=== PATIENT | female | born 1980 | race African-American/Black ===

== ENCOUNTER 2024-11-17 20:23 | Inpatient (IN) ==
[2024-11-17 20:50] VITALS: BMI 29.7
[2024-11-17] MEDS ORDERED: NS 1,000 ML IV 1,000 ML ONE (20:56)
[2024-11-17] MEDS: NS 1,000 ML IV 1,000 ML IV ONE (21:02)
[2024-11-17 21:10] LABS: BASOPHILS # (AUTO) 0.1 X10^3/uL (0.0-0.1); BASOPHILS % (AUTO) 1.1 % (0.2-1.0); EOSINOPHILS # (AUTO) 0.2 x10^3/uL (0.0-0.2); EOSINOPHILS % (AUTO) 1.8 % (0.9-2.9); HEMATOCRIT 25.7 % (36.0-47.0); HEMOGLOBIN 8.7 g/dL (12.0-16.0); LYMPHOCYTES # (AUTO) 1.8 X10^3/uL (1.3-2.9); LYMPHOCYTES % (AUTO) 20.8 % (21.0-51.0); MEAN CORPUSCULAR HEMOGLOBIN 26.8 pg (27.0-34.0); MEAN CORPUSCULAR HGB CONC 33.7 g/dL (33.0-35.0); MEAN CORPUSCULAR VOLUME 79.4 fL (80.0-100.0); MEAN PLATELET VOLUME 9.2 fL (7.4-11.0); MONOCYTES # (AUTO) 0.7 x10^3/uL (0.3-0.8); MONOCYTES % (AUTO) 8.3 % (0.0-13.0); PLATELET COUNT 289 X10^3/uL (150.0-450.0); RED BLOOD COUNT 3.24 X10^6/uL (3.5-5.4); RED CELL DISTRIBUTION WIDTH 12.8 % (11.6-16.5); WHITE BLOOD COUNT 8.8 X10^3/uL (3.6-10.0)
[2024-11-17 21:20] LABS: ALBUMIN 2.8 g/dL (3.4-5.0); CALCIUM 8.8 mg/dL (8.5-10.1); COR CA(FOR HYPOALB) 9.8 mg/dL (8.5-10.1); CREATININE 1.73 mg/dL (0.55-1.02); POTASSIUM 3.5 mmol/L (3.5-5.1); TOTAL PROTEIN 7.6 g/dL (6.4-8.2)
[2024-11-17] MEDS ORDERED: VANCOMYCIN HCL ONE (23:00)
[2024-11-17] MEDS ORDERED: NS 250 ML IV 250 ML IV ONE (23:00)
--- NOTE | 2024-11-17 23:02 | DR.EXTPAIN ---
HPI Time seen Time Seen by Provider: 11/17/24 22:52 PCP Primary Care Physician: holly HPI Comment HPI Comment: Patient was seen earlier here in the ER and found to be severely hyperglycemic with a new diabetic ulcer on her left heel. Patient was scheduled to have surgery with Dr. Canada for her gallbladder on Thursday. As Dr. Canada was walking to the emergency room he was able to stop by and see her ulcer and recommended admission with consultation. I was preparing to admit patient to medical service the patient stated she needed to leave AMA to go berry picker her kid. Now patient is returning with intent of admission and her glucose has improved significantly since she had insulin and then left the hospital. Patient did mention that her last A1c before the holidays was over 13. She denies any fever. Otherwise feels at her baseline. Complaint/Symptoms Chief Complaint:: pt states" I was here earlier and they wanted to admit me I had to leave to go take care of family I'm back now to be admitted because of my diabetic ulcer on my lt foot" COVID-19 Coronavirus risk:travel/contact w/high risk person: No Has patient experienced Coronavirus symptoms: No Source History Provided: Patient Mode of arrival Mode of Arrival: Ambulatory Timing Onset of Chief Complaint: 11/17/24 PMH PMH Past Medical History: Yes Past Medical History: Diabetes Past Surgical History: Yes Surgical History: and Hysterectomy Family History History of Family Medical Conditions: Yes Family Medical History: Diabetes Mellitus Social History Does patient currently use any type of tobacco product: No Have you used tobacco products in the last 12 months: No Type of Tobacco Use: None Does any household member use tobacco: No Do you use any recreational Drugs:: No Lives With: Family Lives Where: Home Travel Risk Coronavirus risk:travel/contact w/high risk person: No Has patient experienced Coronavirus symptoms: No Infectious screening In the last 2 months have you had wt loss of >10#?: NO Have you had fever, night sweats or hemotysis?: No Have you traveled outside the country in the last 6 months?: No Isolation: Standard ROS Review of Systems Constitutional: No Symptoms Reported Eyes: No Symptoms Reported ENTM: No Symptoms Reported Respiratoy: No Symptoms Reported Cardiovascular: No Symptoms Reported Gastrointestinal/Abdominal: No Symptoms Reported Genitourinary: No Symptoms Reported Neurological: No Symptoms Reported Musculoskeletal: No Symptoms Reported Integumentary: Other (Left heel diabetic ulcer.) Hematologic/Lymphatic: No Symptoms Reported Endocrine: No Symptoms Reported Psychiatric: No Symptoms Reported All Other Systems: Reviewed and Negative PE Vital Signs Vitals: Vital Signs Temperature 98.7 F Pulse Rate 112 Respiratory Rate 18 Blood Pressure [Left Arm] 134/77 Blood Pressure 173/83 O2 Sat by Pulse Oximetry 100 General Limitations: No Limitations General Appearance: Alert and In No Apparent Distress Head Head Exam: Normal Inspection Eyes Eye exam: Normal Appearance ENT ENT Exam: Normal Exam Neck Neck Exam: Normal Inspection Chest Chest Inspection: Normal Inspection Respiratory Respiratory Exam: Normal Lung Sounds Bilat Cardiovascular Cardiovascular Exam: Regular Rate and Normal Rhythm Abdominal Exam Abdominal Exam: Normal Inspection, Normal Bowel Sounds and Soft Extremities Extremities Exam: Other (Diabetic ulcer on left heel. Bilateral pedal edema.) Back Back Exam: Normal Inspection Neurological Neurological Exam: Alert, Oriented X3 and CN II-XII Intact Psychiatric Psychiatric Exam: Normal Affect and Normal Mood Skin Skin Exam: Warm, Dry, Intact and Normal Color COURSE Treatment Treatment: Patient had left AMA earlier while considering admission due to severe hyperglycemia and diabetic ulcer. Patient is scheduled for surgery on Thursday with Dr. Canada for her gallbladder. Dr. Canada had seen the ulcer while she was here in the ER but she had to leave to get her kid so she left AMA but returned. Patient's glucose improved significantly upon return. Consultation Called: 00:53 Consultation Comments: Discussed case with Dr. Knott and he is agreeable to admission. Discussed case with Dr. Canada, surgery, and he saw the patient earlier today before patient left AMA and then returned. [facility] Labs Reviewed 11/17/24 21:00 11/17/24 21:00 Laboratory: WBC 8.8 X10^3/uL (3.6-10.0) 11/17/24 21:00 RBC 3.24 X10^6/uL (3.5-5.4) L 11/17/24 21:00 Hgb 8.7 g/dL (12.0-16.0) L 11/17/24 21:00 Hct 25.7 % (36.0-47.0) L 11/17/24 21:00 MCV 79.4 fL (80.0-100.0) L 11/17/24 21:00 MCH 26.8 pg (27.0-34.0) L 01/30/25 21:00 MCHC 33.7 g/dL (33.0-35.0) 11/17/24 21:00 RDW 12.8 % (11.6-16.5) 11/17/24 21:00 Plt Count 289 X10^3/uL (150.0-450.0) 11/17/24 21:00 MPV 9.2 fL (7.4-11.0) 11/17/24 21:00 Neut % (Auto) 68.0 % (42.0-75.0) 11/17/24 21:00 Lymph % (Auto) 20.8 % (21.0-51.0) L 11/17/24 21:00 [place] % (Auto) 8.3 % (0.0-13.0) 11/17/24 21:00 Eos % (Auto) 1.8 % (0.9-2.9) 11/17/24 21:00 Baso % (Auto) 1.1 % (0.2-1.0) H 11/17/24 21:00 Neut # (Auto) 6.0 x10^3/uL (2.2-4.8) H 11/17/24 21:00 Lymph # (Auto) 1.8 X10^3/uL (1.3-2.9) 11/17/24 21:00 [place] # (Auto) 0.7 x10^3/uL (0.3-0.8) 11/17/24 21:00 Eos # (Auto) 0.2 x10^3/uL (0.0-0.2) 11/17/24 21:00 Baso # (Auto) 0.1 X10^3/uL (0.0-0.1) 11/17/24 21:00 Absolute Nucleated RBC 0.0 /100WBC 11/17/24 21:00 Sodium 130 mmol/L (136-145) L 11/17/24 21:00 Corrected Sodium 136 mmol/L (136-145) 11/17/24 21:00 Potassium 3.5 mmol/L (3.5-5.1) 11/17/24 21:00 Chloride 94 mmol/L (98-107) L 11/17/24 21:00 Carbon Dioxide 27.0 mmol/L (21-32) 11/17/24 21:00 BUN 18 mg/dL (7-18) 11/17/24 21:00 Creatinine 1.73 mg/dL (0.55-1.02) H 11/17/24 21:00 Est GFR (MDRD) Af Amer 41 (>60) L 11/17/24 21:00 Est GFR (MDRD) Non-Af 34 (>60) L 11/17/24 21:00 Glucose 367 mg/dL (65-99) H 11/17/24 21:00 Calcium 8.8 mg/dL (8.5-10.1) 11/17/24 21:00 Corrected Calcium 9.8 mg/dL (8.5-10.1) 11/17/24 21:00 Total Bilirubin 0.20 mg/dL (0.2-1.0) 11/17/24 21:00 AST 14 Units/L (15-37) L 11/17/24 21:00 ALT 22 Units/L (12-78) 11/17/24 21:00 Alkaline Phosphatase 159 Units/L (46-116) H 11/17/24 21:00 Total Protein 7.6 g/dL (6.4-8.2) 11/17/24 21:00 Albumin 2.8 g/dL (3.4-5.0) L 11/17/24 21:00 Globulin 4.8 g/dL (2.5-4.5) H 11/17/24 21:00 Albumin/Globulin Ratio 0.6 Ratio (1.1-2.1) L 11/17/24 21:00 Opioid Opioid Risk Tool Age (Cornel box if 16-45): No History of Preadolescent Sexual Abuse: No Total: 0 Total Score Risk Category: Low Risk Copyright: Waqar MARTINEZ predicting aberrant behaviors Discharge Plan Diagnosis Discharge Problem: 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, Diabetic ulcer of left heel, Hyperglycemia, Diabetes mellitus, insulin dependent (IDDM), uncontrolled Discharge Plan Patient Disposition: ADMITTED INPATIENT Condition: Stable Prescriptions: No Action lisinopril 10 mg tablet 10 mg PO DAILY glyburide 5 mg tablet 5 mg PO amitriptyline 50 mg tablet 50 mg PO gabapentin 600 mg tablet PO 3XD famotidine 40 mg tablet 40 mg PO BID atorvastatin 10 mg tablet 20 mg PO DAILY Humulin N NPH Insulin KwikPen 100 unit/mL (3 mL) insulin pen 5 unit SUBCUT TID Health Concerns: Post Hospitalization: new medications and changes needed to prevent readmission or further decline. Pt educated and given instructions on all concerns. Plan of Treatment: Continue with present treatment and follow up plan. Pt is to keep follow up appointment as instructed and take medications as ordered. Orders to Discharge Patient Discharge Orders: Transfer (Routine); Ordered 11/18/24 Ordered By: Ben Walters Follow ups/Referrals Follow ups/Referrals: GENO MUJICA [Primary Care Provider] - 3 days Instructions Stand Alone Forms: Find Help Web Site, Post Hospital Follow Up Care
[2024-11-17] MEDS: VANCOMYCIN IV *PREMIX 1 G/200 ML BAG 1 G/200 ML PIGGYBACK IV ONE (23:04)
[2024-11-17] MEDS: VANCOMYCIN HCL 1 G in NS 250 ML IV 250 ML IV ONE (23:04)
[2024-11-18] MEDS ORDERED: CONSULT PHARMACY - POTASSIUM & MAGNESIUM XX SCH ×2 (01:40→07:00)
[2024-11-18] MEDS ORDERED: NS 1,000 ML IV 1,000 ML IV SCH (01:40)
[2024-11-18] MEDS ORDERED: PHARMACY CONSULT - VANCOMYCIN XX SCH (01:40)
[2024-11-18] MEDS ORDERED: NORCO 5/325 MG TAB ONE (02:50)
[2024-11-18 06:15] LABS: BASOPHILS % (AUTO) 0.3 % (0.2-1.0); EOSINOPHILS # (AUTO) 0.2 x10^3/uL (0.0-0.2); EOSINOPHILS % (AUTO) 2.2 % (0.9-2.9); HEMOGLOBIN 7.4 g/dL (12.0-16.0); LYMPHOCYTES # (AUTO) 2.1 X10^3/uL (1.3-2.9); LYMPHOCYTES % (AUTO) 27.1 % (21.0-51.0); MEAN CORPUSCULAR HEMOGLOBIN 26.8 pg (27.0-34.0); MEAN CORPUSCULAR HGB CONC 33.7 g/dL (33.0-35.0); MEAN CORPUSCULAR VOLUME 79.3 fL (80.0-100.0); MEAN PLATELET VOLUME 9.4 fL (7.4-11.0); MONOCYTES # (AUTO) 0.7 x10^3/uL (0.3-0.8); MONOCYTES % (AUTO) 8.7 % (0.0-13.0); NEUTROPHILS # (AUTO) 4.7 x10^3/uL (2.2-4.8); NEUTROPHILS % (AUTO) 61.7 % (42.0-75.0); PLATELET COUNT 248 X10^3/uL (150.0-450.0); RED BLOOD COUNT 2.77 X10^6/uL (3.5-5.4); RED CELL DISTRIBUTION WIDTH 12.6 % (11.6-16.5); WHITE BLOOD COUNT 7.6 X10^3/uL (3.6-10.0)
[2024-11-18 06:27] LABS: ALANINE AMINOTRANSFERASE 17 Units/L (12-78); ALBUMIN 2.2 g/dL (3.4-5.0); ALKALINE PHOSPHATASE 136 Units/L (46-116); ASPARTATE AMINO TRANSFERASE 15 Units/L (15-37); BLOOD UREA NITROGEN 13 mg/dL (7-18); CALCIUM 8.2 mg/dL (8.5-10.1); CARBON DIOXIDE 24.6 mmol/L (21-32); CHLORIDE 99 mmol/L (98-107); COR CA(FOR HYPOALB) 9.6 mg/dL (8.5-10.1); COR NA(FOR HYPERGLY) 135 mmol/L (136-145); CREATININE 1.09 mg/dL (0.55-1.02); GLUCOSE 244 mg/dL (65-99); MAGNESIUM 1.6 mg/dL (2.0-2.9); POTASSIUM 3.8 mmol/L (3.5-5.1); SODIUM 132 mmol/L (136-145); TOTAL PROTEIN 6.4 g/dL (6.4-8.2); eGFR NON BLACK RACES 58 (>60)
[2024-11-18] MEDS: NovoLIN R (or HumuLIN R) SUBCUT PRN (06:29)
[2024-11-18 07:07] LABS: HEMOGLOBIN A1C > 14.0 %
[2024-11-18] MEDS: K-DUR TAB 20 MEQ PO SCH (08:12)
[2024-11-18] MEDS: VANCOMYCIN HCL 1 G in D5W 250 ML IV 250 ML IV SCH (08:13)
[2024-11-18] MEDS: NS 1,000 ML IV 1,000 ML with MAGNESIUM SULFATE 50% INJ VIAL 1 G IV SCH (08:13)
[2024-11-18] MEDS ORDERED: MAG-OX TAB PO SCH (09:00)
[2024-11-18] MEDS: NEURONTIN TAB 600 MG PO SCH (10:46)
[2024-11-18] MEDS: ZESTRIL TAB 10 MG PO SCH (10:46)
[2024-11-18] MEDS: ZOFRAN INJ 4 MG VIAL IVP PRN (11:48)
[2024-11-18] MEDS ORDERED: VANCOMYCIN HCL 1 G in D5W 250 ML IV 250 ML IV SCH (13:00)
[2024-11-18] MEDS: NORCO 5/325 MG TAB PO PRN (20:30)
[2024-11-18 22:20] LABS: CREATININE 1.43 mg/dL (0.55-1.02)
[2024-11-18 22:22] LABS: VANCOMYCIN,TROUGH 26.2 ug/mL (15-20)
[2024-11-18] MEDS: SNACK - Diabetic Appropriate PO SCH (22:32)
[2024-11-18] MEDS: PHARMACY COMMENT IV ONE (22:43)
[2024-11-19 07:12] LABS: BASOPHILS % (AUTO) 0.4 % (0.2-1.0); EOSINOPHILS # (AUTO) 0.2 x10^3/uL (0.0-0.2); EOSINOPHILS % (AUTO) 2.7 % (0.9-2.9); HEMATOCRIT 24.3 % (36.0-47.0); HEMOGLOBIN 8.1 g/dL (12.0-16.0); LYMPHOCYTES # (AUTO) 1.9 X10^3/uL (1.3-2.9); LYMPHOCYTES % (AUTO) 28.4 % (21.0-51.0); MEAN CORPUSCULAR HEMOGLOBIN 26.4 pg (27.0-34.0); MEAN CORPUSCULAR HGB CONC 33.4 g/dL (33.0-35.0); MEAN CORPUSCULAR VOLUME 79.1 fL (80.0-100.0); MEAN PLATELET VOLUME 9.7 fL (7.4-11.0); MONOCYTES # (AUTO) 0.4 x10^3/uL (0.3-0.8); MONOCYTES % (AUTO) 6.6 % (0.0-13.0); NEUTROPHILS # (AUTO) 4.2 x10^3/uL (2.2-4.8); NEUTROPHILS % (AUTO) 61.9 % (42.0-75.0); PLATELET COUNT 226 X10^3/uL (150.0-450.0); RED BLOOD COUNT 3.07 X10^6/uL (3.5-5.4); RED CELL DISTRIBUTION WIDTH 13.2 % (11.6-16.5); WHITE BLOOD COUNT 6.7 X10^3/uL (3.6-10.0)
[2024-11-19 07:30] LABS: ALANINE AMINOTRANSFERASE 21 Units/L (12-78); ALBUMIN 2.5 g/dL (3.4-5.0); ALKALINE PHOSPHATASE 153 Units/L (46-116); ASPARTATE AMINO TRANSFERASE 24 Units/L (15-37); BLOOD UREA NITROGEN 15 mg/dL (7-18); CALCIUM 9.1 mg/dL (8.5-10.1); CARBON DIOXIDE 25.3 mmol/L (21-32); CHLORIDE 104 mmol/L (98-107); COR CA(FOR HYPOALB) 10.3 mg/dL (8.5-10.1); CREATININE 1.73 mg/dL (0.55-1.02); GLUCOSE 92 mg/dL (65-99); MAGNESIUM 2.2 mg/dL (2.0-2.9); POTASSIUM 4.4 mmol/L (3.5-5.1); SODIUM 137 mmol/L (136-145); eGFR NON BLACK RACES 34 (>60)
[2024-11-19] MEDS ORDERED: VANCOMYCIN HCL 1 G in D5W 250 ML IV 250 ML IV SCH (09:00)
[2024-11-19 09:08] LABS: CREATININE 1.84 mg/dL (0.55-1.02)
[2024-11-19 09:10] LABS: VANCOMYCIN,TROUGH 24.2 ug/mL (15-20)
[2024-11-19] MEDS: NS 1,000 ML IV 1,000 ML IV SCH (09:22)
[2024-11-19] MEDS: VISTARIL PO PRN (21:14)
[2024-11-20 07:00] LABS: BASOPHILS # (AUTO) 0.1 X10^3/uL (0.0-0.1); BASOPHILS % (AUTO) 1.2 % (0.2-1.0); EOSINOPHILS # (AUTO) 0.1 x10^3/uL (0.0-0.2); HEMATOCRIT 25.4 % (36.0-47.0); HEMOGLOBIN 8.6 g/dL (12.0-16.0); LYMPHOCYTES # (AUTO) 1.9 X10^3/uL (1.3-2.9); LYMPHOCYTES % (AUTO) 26.8 % (21.0-51.0); MEAN CORPUSCULAR HEMOGLOBIN 26.9 pg (27.0-34.0); MEAN CORPUSCULAR HGB CONC 33.9 g/dL (33.0-35.0); MEAN CORPUSCULAR VOLUME 79.5 fL (80.0-100.0); MEAN PLATELET VOLUME 9.6 fL (7.4-11.0); MONOCYTES # (AUTO) 0.3 x10^3/uL (0.3-0.8); MONOCYTES % (AUTO) 4.3 % (0.0-13.0); NEUTROPHILS # (AUTO) 4.7 x10^3/uL (2.2-4.8); NEUTROPHILS % (AUTO) 65.7 % (42.0-75.0); PLATELET COUNT 326 X10^3/uL (150.0-450.0); RED BLOOD COUNT 3.19 X10^6/uL (3.5-5.4); WHITE BLOOD COUNT 7.2 X10^3/uL (3.6-10.0)
[2024-11-20 07:25] LABS: ALBUMIN 2.7 g/dL (3.4-5.0); CALCIUM 8.9 mg/dL (8.5-10.1); CARBON DIOXIDE 25.2 mmol/L (21-32); COR CA(FOR HYPOALB) 9.9 mg/dL (8.5-10.1); CREATININE 1.74 mg/dL (0.55-1.02); POTASSIUM 4.4 mmol/L (3.5-5.1); TOTAL PROTEIN 7.8 g/dL (6.4-8.2)
[2024-11-20 08:48] LABS: CREATININE 1.69 mg/dL (0.55-1.02); VANCOMYCIN,TROUGH 11.5 ug/mL (15-20)
[2024-11-20] MEDS: PHARMACY COMMENT IV ONE ×2 (09:00→10:10)
[2024-11-20] MEDS: VANCOMYCIN HCL 1 G in D5W 250 ML IV 250 ML IV SCH (09:55)
[2024-11-20] MEDS: NS 100 ML IV 100 ML with VENOFER 400 MG IV ONE (12:10)
[2024-11-21] MEDS: HIBICLENS WASH EXT ONE (04:31)
[2024-11-21 06:47] LABS: BASOPHILS % (AUTO) 0.5 % (0.2-1.0); EOSINOPHILS # (AUTO) 0.2 x10^3/uL (0.0-0.2); EOSINOPHILS % (AUTO) 2.2 % (0.9-2.9); HEMATOCRIT 21.5 % (36.0-47.0); HEMOGLOBIN 7.2 g/dL (12.0-16.0); LYMPHOCYTES # (AUTO) 1.5 X10^3/uL (1.3-2.9); LYMPHOCYTES % (AUTO) 17.9 % (21.0-51.0); MEAN CORPUSCULAR HGB CONC 33.6 g/dL (33.0-35.0); MEAN CORPUSCULAR VOLUME 80.2 fL (80.0-100.0); MEAN PLATELET VOLUME 9.2 fL (7.4-11.0); MONOCYTES # (AUTO) 0.5 x10^3/uL (0.3-0.8); MONOCYTES % (AUTO) 6.6 % (0.0-13.0); NEUTROPHILS % (AUTO) 72.8 % (42.0-75.0); PLATELET COUNT 286 X10^3/uL (150.0-450.0); RED BLOOD COUNT 2.68 X10^6/uL (3.5-5.4); WHITE BLOOD COUNT 8.2 X10^3/uL (3.6-10.0)
[2024-11-21 07:09] LABS: ALBUMIN 2.2 g/dL (3.4-5.0); CALCIUM 8.2 mg/dL (8.5-10.1); CARBON DIOXIDE 26.7 mmol/L (21-32); COR CA(FOR HYPOALB) 9.6 mg/dL (8.5-10.1); CREATININE 1.57 mg/dL (0.55-1.02); POTASSIUM 4.4 mmol/L (3.5-5.1); TOTAL PROTEIN 6.7 g/dL (6.4-8.2)
[2024-11-21] MEDS: NS 1,000 ML IV 1,000 ML ONE (07:31)
[2024-11-21] MEDS: ANCEF VIAL 1 GRAM ONE (07:59)
[2024-11-21] MEDS: NS 100 ML IV 100 ML ONE (07:59)
[2024-11-21] MEDS: ZEMURON 100 MG VIAL ONE (08:05)
[2024-11-21] MEDS: ZOFRAN INJ 4 MG VIAL ONE ×2 (08:05→09:27)
[2024-11-21] MEDS: PEPCID 20 MG VIAL ONE (08:05)
[2024-11-21] MEDS: VERSED ONE (08:05)
[2024-11-21] MEDS: REGLAN INJ 10 MG VIAL ONE (08:05)
[2024-11-21] MEDS: OFIRMEV IV 1000 MG VIAL 1,000 MG/100 ML VIAL IV ONE (08:05)
[2024-11-21] MEDS: DIPRIVAN VIAL 20 ML ONE (08:05)
[2024-11-21] MEDS: FENTANYL VIAL INJ 100 mcg ONE (08:05)
[2024-11-21] MEDS ORDERED: ULTANE GAS IN ONE (08:05)
[2024-11-21] MEDS: BRIDION ONE (08:05)
[2024-11-21] MEDS: TORADOL 30 MG VIAL ONE (08:05)
[2024-11-21] MEDS: BACTROBAN TOPICAL OINT ONE (08:29)
[2024-11-21] MEDS ORDERED: ZOFRAN INJ 4 MG VIAL IVP PRN (08:41)
[2024-11-21] MEDS ORDERED: REGLAN INJ 10 MG VIAL IVP PRN (08:41)
[2024-11-21] MEDS ORDERED: BENADRYL INJ 50 MG VIAL IVP PRN (08:41)
[2024-11-21] MEDS ORDERED: BARHEMSYS INJ IVP PRN (08:41)
[2024-11-21] MEDS: DILAUDID INJ ONE ×2 (09:27→09:32)
[2024-11-21] MEDS: DILAUDID INJ IVP PRN (09:30)
[2024-11-21 10:34] LABS: CREATININE 1.7 mg/dL (0.55-1.02); VANCOMYCIN,TROUGH 12.4 ug/mL (15-20)
--- NOTE | 2024-11-21 11:13 | EKG ---
Test Reason : pre op Blood Pressure : */* mmHG Vent. Rate : 103 BPM Atrial Rate : 103 BPM P-R Int : 168 ms QRS Dur : 68 ms QT Int : 346 ms P-R-T Axes : 60 69 49 degrees QTc Int : 453 ms Sinus tachycardia Nonspecific T wave abnormality Abnormal ECG Confirmed by Gaston Boyd MD ([id number]) on 11/22/2024 7:49:03 AM Referred By: Confirmed By: Gaston Boyd MD
[2024-11-21 16:22] LABS: HEMOGLOBIN 6.3 g/dL (12.0-16.0)
[2024-11-21] MEDS ORDERED: NS 250 ML IV 250 ML IV ONE (22:07)
--- NOTE | 2024-11-21 23:19 | CT ---
EXAMINATION:LOWER EXT WITH CONHISTORY:diabetic left foot infection ;COMPARISON:None.TECHNIQUE:Contiguous axial CT images of the left foot following intravenous contrast. Images are reviewed in the axial imaging plane with reformatted sagittal and coronal images.The above CT scan was done with automated exposure control and the mA and kV was adjusted to obtain quality images according to patient size.FINDINGS:The osseous structures appear intact. No focal osteolytic or osteoblastic lesions to indicate active osteomyelitis. No evidence of acute traumatic displaced fracture.Generalized extensive soft tissue swelling/edema about the foot and ankle. No definitive focal abscess collection identified.IMPRESSION:Extensive diffuse cellulitis about the foot and ankle. Recommend further evaluation with an MRI of the foot and ankle without and with IV contrast.THIS IS AN ELECTRONICALLY VERIFIED FINAL REPORT11/21/2024 11:15 PM - Electronically signed by Jesika Jo MD
[2024-11-22] MEDS: NS 250 ML IV 25 ML IV PRN (01:34)
[2024-11-22 06:16] LABS: BASOPHILS % (AUTO) 0.5 % (0.2-1.0); EOSINOPHILS # (AUTO) 0.2 x10^3/uL (0.0-0.2); EOSINOPHILS % (AUTO) 2.7 % (0.9-2.9); HEMATOCRIT 26.6 % (36.0-47.0); LYMPHOCYTES # (AUTO) 1.6 X10^3/uL (1.3-2.9); LYMPHOCYTES % (AUTO) 22.6 % (21.0-51.0); MEAN CORPUSCULAR HEMOGLOBIN 28.2 pg (27.0-34.0); MEAN CORPUSCULAR HGB CONC 34.2 g/dL (33.0-35.0); MEAN CORPUSCULAR VOLUME 82.5 fL (80.0-100.0); MONOCYTES # (AUTO) 0.6 x10^3/uL (0.3-0.8); MONOCYTES % (AUTO) 8.5 % (0.0-13.0); NEUTROPHILS # (AUTO) 4.7 x10^3/uL (2.2-4.8); NEUTROPHILS % (AUTO) 65.7 % (42.0-75.0); PLATELET COUNT 262 X10^3/uL (150.0-450.0); RED BLOOD COUNT 3.23 X10^6/uL (3.5-5.4); RED CELL DISTRIBUTION WIDTH 14.1 % (11.6-16.5); WHITE BLOOD COUNT 7.1 X10^3/uL (3.6-10.0)
[2024-11-22 06:25] LABS: HEMOGLOBIN 9.1 g/dL (12.0-16.0)
[2024-11-22 06:32] LABS: ALANINE AMINOTRANSFERASE 34 Units/L (12-78); ALBUMIN 2.2 g/dL (3.4-5.0); ALKALINE PHOSPHATASE 191 Units/L (46-116); ASPARTATE AMINO TRANSFERASE 63 Units/L (15-37); BLOOD UREA NITROGEN 20 mg/dL (7-18); CALCIUM 8.8 mg/dL (8.5-10.1); CARBON DIOXIDE 23.9 mmol/L (21-32); CHLORIDE 107 mmol/L (98-107); COR CA(FOR HYPOALB) 10.2 mg/dL (8.5-10.1); CREATININE 1.87 mg/dL (0.55-1.02); GLUCOSE 74 mg/dL (65-99); POTASSIUM 4.3 mmol/L (3.5-5.1); SODIUM 139 mmol/L (136-145); TOTAL PROTEIN 6.4 g/dL (6.4-8.2); eGFR NON BLACK RACES 31 (>60)
[2024-11-22] MEDS: NS 100 ML IV 100 ML with VENOFER 400 MG IV ONE (10:09)
--- NOTE | 2024-11-22 10:13 | DR.PROGNOT ---
HOSPITAL PROGRESS NOTE Progress Note for Day of: Progress Note Date: 11/22/24 Chief Complaint Chief Complaint: Patient is status post laparoscopic cholecystectomy, complaining of moderate abdominal pain. No nausea or vomiting, tolerating diet well WBC is normal, hemoglobin 9.1, BUN 20 creatinine 1.8, alkaline phosphatase 191 with normal bilirubin. Vancomycin level is 12. Abdomen is soft with good bowel sounds. Patient is scheduled to have MRI of the left heel then patient could be discharged and will follow in 10 days. Past Medical Family Social History Allergies: Allergies No Known Drug Allergies Allergy (Unknown, Verified 11/17/24 14:52) Onset Date: 04/03/2022 Vital Signs Vital Signs: Vital Signs Temperature 98.3 F Pulse Rate [Left] 78 Respiratory Rate 18 Blood Pressure [Left Arm] 120/73 O2 Sat by Pulse Oximetry 100 Physical Exam Oriented: Normal Eyes: Normal Ear: Normal Nose: Normal Throat: Normal Respiratory: Normal Cardiovascular: Normal : Normal GI:Auscultation: Normal GI:Palpation: Normal Mood Description: Calm Speech Pattern: Clear and Appropriate Laboratory and Diagnostics 11/22/24 05:28 11/22/24 05:28 Labs: 11/21/24 09:21 Foot - Left Wound Culture - Preliminary 11/17/24 00:00 Blood Blood Culture - Preliminary 11/17/24 23:40 Blood Blood Culture - Preliminary Laboratory WBC 7.1 X10^3/uL (3.6-10.0) 11/22/24 05:28 RBC 3.23 X10^6/uL (3.5-5.4) L 11/22/24 05:28 Hgb 9.1 g/dL (12.0-16.0) L D 11/22/24 05:28 Hct 26.6 % (36.0-47.0) L 11/22/24 05:28 MCV 82.5 fL (80.0-100.0) 11/22/24 05:28 MCH 28.2 pg (27.0-34.0) 11/22/24 05:28 MCHC 34.2 g/dL (33.0-35.0) 11/22/24 05:28 RDW 14.1 % (11.6-16.5) 11/22/24 05:28 Plt Count 262 X10^3/uL (150.0-450.0) 11/22/24 05:28 MPV 9.0 fL (7.4-11.0) 11/22/24 05:28 Neut % (Auto) 65.7 % (42.0-75.0) 11/22/24 05:28 Lymph % (Auto) 22.6 % (21.0-51.0) 11/22/24 05:28 [place] % (Auto) 8.5 % (0.0-13.0) 11/22/24 05:28 Eos % (Auto) 2.7 % (0.9-2.9) 11/22/24 05:28 Baso % (Auto) 0.5 % (0.2-1.0) 11/22/24 05:28 Neut # (Auto) 4.7 x10^3/uL (2.2-4.8) 11/22/24 05:28 Lymph # (Auto) 1.6 X10^3/uL (1.3-2.9) 11/22/24 05:28 [place] # (Auto) 0.6 x10^3/uL (0.3-0.8) 11/22/24 05:28 Eos # (Auto) 0.2 x10^3/uL (0.0-0.2) 11/22/24 05:28 Baso # (Auto) 0.0 X10^3/uL (0.0-0.1) 11/22/24 05:28 Absolute Nucleated RBC 0.1 /100WBC 11/22/24 05:28 Sodium 139 mmol/L (136-145) 11/22/24 05:28 Corrected Sodium TNP 11/22/24 05: Potassium 4.3 mmol/L (3.5-5.1) 11/22/24 05:28 Chloride 107 mmol/L (98-107) 11/22/24 05:28 Carbon Dioxide 23.9 mmol/L (21-32) 11/22/24 05:28 BUN 20 mg/dL (7-18) H 11/22/24 05:28 Creatinine 1.87 mg/dL (0.55-1.02) H 11/22/24 05:28 Est GFR (MDRD) Af Amer 38 (>60) L 11/22/24 05:28 Est GFR (MDRD) Non-Af 31 (>60) L 11/22/24 05:28 Glucose 74 mg/dL (65-99) 11/22/24 05:28 POC Glucose (mg/dL) 71 mg/dL (65-99) 11/22/24 05:22 Hemoglobin A1c > 14.0 % 11/18/24 05:18 Lactic Acid 1.2 mmol/L (0.4-2.0) 11/17/24 23:59 Calcium 8.8 mg/dL (8.5-10.1) 11/22/24 05:28 Corrected Calcium 10.2 mg/dL (8.5-10.1) H 11/22/24 05:28 Magnesium 2.2 mg/dL (2.0-2.9) 11/19/24 05:22 Total Bilirubin 0.30 mg/dL (0.2-1.0) 11/22/24 05:28 AST 63 Units/L (15-37) H 11/22/24 05:28 ALT 34 Units/L (12-78) 11/22/24 05:28 Alkaline Phosphatase 191 Units/L (46-116) H 11/22/24 05:28 Total Protein 6.4 g/dL (6.4-8.2) 11/22/24 05:28 Albumin 2.2 g/dL (3.4-5.0) L 11/22/24 05:28 Globulin 4.2 g/dL (2.5-4.5) 11/22/24 05:28 Albumin/Globulin Ratio 0.5 Ratio (1.1-2.1) L 11/22/24 05:28 Vancomycin Trough 12.4 ug/mL (15-20) L 11/21/24 09:53 Blood Type O POSITIVE 11/21/24 17:03 Antibody Screen Negative 11/21/24 17:03 Crossmatch See Detail 11/21/24 17:03 Assessment and Plan 1: Status post laparoscopic cholecystectomy, will advance diet 2: Infected left heel ulcer, to have MRI of the foot, same vancomycin awaiting final culture report. 3: Diabetes mellitus with complications. 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
[2024-11-22] MEDS ORDERED: TOPROL XL PO ONE (12:24)
[2024-11-22] MEDS: FARXIGA PO SCH (12:28)
[2024-11-22] MEDS: ACTOS PO SCH (12:29)
[2024-11-22] MEDS: TOPROL XL PO SCH (12:29)
[2024-11-22] MEDS: ZESTRIL TAB 10 MG PO ONE (12:29)
[2024-11-23 00:12] VITALS: RESP 18
[2024-11-23] MEDS: CATAPRES TAB 0.1 MG PO ONE (00:23)
[2024-11-23 06:16] LABS: BASOPHILS % (AUTO) 0.5 % (0.2-1.0); EOSINOPHILS # (AUTO) 0.2 x10^3/uL (0.0-0.2); HEMOGLOBIN 8.6 g/dL (12.0-16.0); LYMPHOCYTES # (AUTO) 1.4 X10^3/uL (1.3-2.9); LYMPHOCYTES % (AUTO) 23.2 % (21.0-51.0); MEAN CORPUSCULAR HEMOGLOBIN 28.1 pg (27.0-34.0); MEAN CORPUSCULAR HGB CONC 34.4 g/dL (33.0-35.0); MEAN CORPUSCULAR VOLUME 81.8 fL (80.0-100.0); MONOCYTES # (AUTO) 0.5 x10^3/uL (0.3-0.8); MONOCYTES % (AUTO) 8.2 % (0.0-13.0); NEUTROPHILS # (AUTO) 3.8 x10^3/uL (2.2-4.8); NEUTROPHILS % (AUTO) 64.1 % (42.0-75.0); PLATELET COUNT 251 X10^3/uL (150.0-450.0); RED BLOOD COUNT 3.05 X10^6/uL (3.5-5.4); RED CELL DISTRIBUTION WIDTH 14.3 % (11.6-16.5)
[2024-11-23 06:26] LABS: ALBUMIN 1.9 g/dL (3.4-5.0); CALCIUM 8.3 mg/dL (8.5-10.1); CARBON DIOXIDE 23.3 mmol/L (21-32); CREATININE 1.72 mg/dL (0.55-1.02); POTASSIUM 4.4 mmol/L (3.5-5.1); TOTAL PROTEIN 5.9 g/dL (6.4-8.2)
[2024-11-23] MEDS ORDERED: TOPROL XL PO ONE (08:14)
[2024-11-23 08:44] VITALS: BP 130/63; PULSE 81; TEMP 98.7; O2SAT 97
== END 2024-11-23 16:10 | disposition home or self-care (01) | DRG 418 ==
LOC: ER 20:23 → MED/SURG 20:23 → ER 11-18 01:29
PROVIDERS: ADMIT Obstetrics & Gynecology Obstetrics; ATTEND Obstetrics & Gynecology Obstetrics
DX: K81.1 Chronic cholecystitis; N18.9 Chronic kidney disease, unspecified; B95.7 Other staphylococcus as the cause of diseases classified elsewhere; R79.89 Other specified abnormal findings of blood chemistry; E11.65 Type 2 diabetes mellitus with hyperglycemia; R00.0 Tachycardia, unspecified; Z79.4 Long term (current) use of insulin; Z53.29 Procedure and treatment not carried out because of patient's decision for other reasons; E87.1 Hypo-osmolality and hyponatremia; Z01.810 Encounter for preprocedural cardiovascular examination; E11.42 Type 2 diabetes mellitus with diabetic polyneuropathy; D64.89 Other specified anemias; M79.672 Pain in left foot; Z16.29 Resistance to other single specified antibiotic; L97.428 Non-pressure chronic ulcer of left heel and midfoot with other specified severity; R94.31 Abnormal electrocardiogram [ECG] [EKG]; K66.0 Peritoneal adhesions (postprocedural) (postinfection); B95.61 Methicillin susceptible Staphylococcus aureus infection as the cause of diseases classified elsewhere; R74.8 Abnormal levels of other serum enzymes; E11.621 Type 2 diabetes mellitus with foot ulcer; E83.42 Hypomagnesemia

== ENCOUNTER 2024-12-02 13:10 | Observation (INO) ==
[2024-12-02] MEDS: NS 1,000 ML IV 1,000 ML IV ONE ×2 (14:12→18:27)
[2024-12-02] MEDS: MORPHINE SULFATE INJ 4 MG IVP ONE ×2 (14:13→16:33)
[2024-12-02] MEDS: ZOFRAN INJ 4 MG VIAL IVP ONE ×2 (14:13→18:27)
[2024-12-02 15:09] LABS: BASOPHILS # (AUTO) 0.1 X10^3/uL (0.0-0.1); BASOPHILS % (AUTO) 0.8 % (0.2-1.0); HEMATOCRIT 35.8 % (36.0-47.0); HEMOGLOBIN 11.9 g/dL (12.0-16.0); LYMPHOCYTES # (AUTO) 1.3 X10^3/uL (1.3-2.9); LYMPHOCYTES % (AUTO) 11.1 % (21.0-51.0); MEAN CORPUSCULAR HEMOGLOBIN 27.3 pg (27.0-34.0); MEAN CORPUSCULAR HGB CONC 33.2 g/dL (33.0-35.0); MEAN CORPUSCULAR VOLUME 82.3 fL (80.0-100.0); MEAN PLATELET VOLUME 7.8 fL (7.4-11.0); MONOCYTES # (AUTO) 0.7 x10^3/uL (0.3-0.8); MONOCYTES % (AUTO) 5.8 % (0.0-13.0); NEUTROPHILS # (AUTO) 9.7 x10^3/uL (2.2-4.8); NEUTROPHILS % (AUTO) 82.3 % (42.0-75.0); PLATELET COUNT 413 X10^3/uL (150.0-450.0); RED BLOOD COUNT 4.36 X10^6/uL (3.5-5.4); RED CELL DISTRIBUTION WIDTH 14.6 % (11.6-16.5); WHITE BLOOD COUNT 11.8 X10^3/uL (3.6-10.0)
[2024-12-02 15:20] LABS: ALBUMIN 3.1 g/dL (3.4-5.0); CALCIUM 8.8 mg/dL (8.5-10.1); CARBON DIOXIDE 28.2 mmol/L (21-32); COR CA(FOR HYPOALB) 9.5 mg/dL (8.5-10.1); CREATININE 2.15 mg/dL (0.55-1.02); POTASSIUM 3.4 mmol/L (3.5-5.1); TOTAL PROTEIN 8.2 g/dL (6.4-8.2)
--- NOTE | 2024-12-02 19:40 | DR.GENAD ---
HPI Time Seen Time Seen by Provider: 12/02/24 13:47 PCP Primary Care Physician: Shar Complaint/Symptoms Chief Complaint Doctors Comments: 44 yo F, hx of DM, c/o gen abd pain and vomiting for past 2d, ~20+ episodes per day. States she had a few episodes of hematemesis at home. Denies fever. Denies diarrhea. Denies other complaints. Seen here yes, had neg CT abd at that time, advised to return to ER if symptoms worsen. Chief Complaint:: Pt. c/o onset of mid adominal pain radiating to her back yesterday. Pt. reports that shortly after the pain started she started having nausea and vomiting. Pt. reports vomiting about 12 times today and she reports that she has been vomiting blood. Pt. was seen in the ER last night for this same complaint and was told to return to the ER if her symptoms did not improve. Pt. had a recent laparoscopic cholecystectomy with Dr. Chun Thursday. COVID-19 Coronavirus risk:travel/contact w/high risk person: No Has patient experienced Coronavirus symptoms: No Source History Provided: Patient and Family Member Mode of Arrival Mode of Arrival: Wheelchair Timing Onset of Chief Complaint: 12/01/24 PMH PMH Past Medical History: Yes Past Medical History: Anemia, Asthma, Diabetes and Hypertension Past Surgical History: Yes Surgical History: , Cholecystectomy and Hysterectomy Family History History of Family Medical Conditions: Yes Family Medical History: Diabetes Mellitus and Hypertension Social History Does patient currently use any type of tobacco product: No Have you used tobacco products in the last 12 months: No Type of Tobacco Use: None Does any household member use tobacco: No Alcohol Use: None Do you use any recreational Drugs:: No Lives With: Family Lives Where: Home Travel Risk Coronavirus risk:travel/contact w/high risk person: No Has patient experienced Coronavirus symptoms: No Infectious screening In the last 2 months have you had wt loss of >10#?: NO Have you had fever, night sweats or hemotysis?: No Have you traveled outside the country in the last 6 months?: No Isolation: Standard ROS Review of Systems Gastrointestinal/Abdominal: Abdominal Pain, Nausea and Vomiting; negative Diarrhea All Other Systems: Reviewed and Negative PE Vital Signs Vitals: Vital Signs Temperature 97.9 F Pulse Rate 116 Pulse Rate 118 Pulse Rate 116 Pulse Rate 118 Pulse Rate 117 Pulse Rate 110 Pulse Rate 109 Pulse Rate 110 Pulse Rate 110 Pulse Rate 112 Pulse Rate 114 Pulse Rate 121 Pulse Rate 121 Pulse Rate 121 Pulse Rate 121 Pulse Rate 117 Pulse Rate 120 Pulse Rate 122 Pulse Rate 123 Pulse Rate 134 Pulse Rate 125 Pulse Rate 123 Respiratory Rate 18 Respiratory Rate 15 Respiratory Rate 13 Respiratory Rate 12 Respiratory Rate 28 Respiratory Rate 12 Respiratory Rate 13 Respiratory Rate 12 Respiratory Rate 11 Respiratory Rate 13 Respiratory Rate 13 Respiratory Rate 13 Respiratory Rate 13 Respiratory Rate 23 Respiratory Rate 35 Respiratory Rate 17 Respiratory Rate 32 Respiratory Rate 16 Respiratory Rate 14 Respiratory Rate 16 Respiratory Rate 20 Respiratory Rate 17 Respiratory Rate 26 Respiratory Rate 18 Blood Pressure 147/90 Blood Pressure 160/93 Blood Pressure 165/86 Blood Pressure 165/86 Blood Pressure 165/86 Blood Pressure 168/81 Blood Pressure 169/98 Blood Pressure 155/94 Blood Pressure 163/98 Blood Pressure 166/97 Blood Pressure 177/102 Blood Pressure 178/101 Blood Pressure 197/110 Blood Pressure 228/134 Blood Pressure 235/136 Blood Pressure 234/139 Blood Pressure 238/134 Blood Pressure 199/103 Blood Pressure 202/101 Blood Pressure 211/102 Blood Pressure 205/111 O2 Sat by Pulse Oximetry 97 O2 Sat by Pulse Oximetry 99 O2 Sat by Pulse Oximetry 98 O2 Sat by Pulse Oximetry 98 O2 Sat by Pulse Oximetry 97 O2 Sat by Pulse Oximetry 98 O2 Sat by Pulse Oximetry 98 O2 Sat by Pulse Oximetry 98 O2 Sat by Pulse Oximetry 98 O2 Sat by Pulse Oximetry 98 O2 Sat by Pulse Oximetry 100 O2 Sat by Pulse Oximetry 100 O2 Sat by Pulse Oximetry 100 O2 Sat by Pulse Oximetry 99 O2 Sat by Pulse Oximetry 99 O2 Sat by Pulse Oximetry 98 O2 Sat by Pulse Oximetry 97 O2 Sat by Pulse Oximetry 99 O2 Sat by Pulse Oximetry 99 O2 Sat by Pulse Oximetry 99 O2 Sat by Pulse Oximetry 98 O2 Sat by Pulse Oximetry 95 General Limitations: No Limitations General Appearance: Alert and In No Apparent Distress Head Head Exam: Normal Inspection Eyes Eye exam: Normal Appearance ENT ENT Exam: Normal Exam External Ear Exam: Normal External Inspection TM/Canal Exam: Bilateral: Normal Nose Exam: Normal Nose Exam Mouth Exam: Normal Inspection Throat Exam: Normal Inspection Neck Neck Exam: Normal Inspection Chest Chest Inspection: Normal Inspection Respiratory Respiratory Exam: Normal Lung Sounds Bilat Respiratory Exam: Bilateral: Clear to Auscultation Cardiovascular Cardiovascular Exam: Normal Rhythm and Tachycardia Abdominal Exam Abdominal Exam: Tenderness (Diffuse); negative Distention, Guarding or Rebound Extremities Extremities Exam: Normal Inspection Back Back Exam: Normal Inspection Neurologic Neurological Exam: Alert and Oriented X3 Psychiatric Psychiatric Exam: Normal Affect and Normal Mood Skin Skin Exam: Warm, Dry, Intact and Normal Color ROR Labs Reviewed Laboratory Results Reviewed?: Yes 12/02/24 14:12/02/24: Laboratory: WBC 11.8 X10^3/uL (3.6-10.0) H 12/02/24 14: RBC 4.36 X10^6/uL (3.5-5.4) 12/02/24: Hgb 11.9 g/dL (12.0-16.0) L 12/02/24: Hct 35.8 % (36.0-47.0) L 12/02/24: MCV 82.3 fL (80.0-100.0) 12/02/24: MCH 27.3 pg (27.0-34.0) 12/02/24: MCHC 33.2 g/dL (33.0-35.0) 12/02/24: RDW 14.6 % (11.6-16.5) 12/02/24: Plt Count 413 X10^3/uL (150.0-450.0) 12/02/24: MPV 7.8 fL (7.4-11.0) 12/02/24: Neut % (Auto) 82.3 % (42.0-75.0) H 12/02/24: Lymph % (Auto) 11.1 % (21.0-51.0) L 12/02/24: [place] % (Auto) 5.8 % (0.0-13.0) 12/02/24: Eos % (Auto) 0.0 % (0.9-2.9) L 12/02/24: Baso % (Auto) 0.8 % (0.2-1.0) 12/02/24: Neut # (Auto) 9.7 x10^3/uL (2.2-4.8) H 12/02/24: Lymph # (Auto) 1.3 X10^3/uL (1.3-2.9) 12/02/24 14:25 [place] # (Auto) 0.7 x10^3/uL (0.3-0.8) 12/02/24 14:25 Eos # (Auto) 0.0 x10^3/uL (0.0-0.2) 12/02/24 14:25 Baso # (Auto) 0.1 X10^3/uL (0.0-0.1) 12/02/24 14:25 Absolute Nucleated RBC 0.1 /100WBC 12/02/24 14:25 Sodium 138 mmol/L (136-145) 12/02/24 14:25 Corrected Sodium 144 mmol/L (136-145) 12/02/24 14:25 Potassium 3.4 mmol/L (3.5-5.1) L 12/02/24 14:25 Chloride 97 mmol/L (98-107) L 12/02/24 14:25 Carbon Dioxide 28.2 mmol/L (21-32) 12/02/24 14: BUN 22 mg/dL (7-18) H 12/02/24 14:25 Creatinine 2.15 mg/dL (0.55-1.02) H 12/02/24 14:25 Est GFR (MDRD) Af Amer 32 (>60) L 12/02/24 14: Est GFR (MDRD) Non-Af 27 (>60) L 12/02/24 14:25 Glucose 342 mg/dL (65-99) H 12/02/24 14: Calcium 8.8 mg/dL (8.5-10.1) 12/02/24 14:25 Corrected Calcium 9.5 mg/dL (8.5-10.1) 12/02/24 14:25 Total Bilirubin 0.30 mg/dL (0.2-1.0) 12/02/24 14:25 AST 24 Units/L (15-37) 12/02/24 14:25 ALT 24 Units/L (12-78) 12/02/24 14:25 Alkaline Phosphatase 240 Units/L (46-116) H 12/02/24 14:25 Total Protein 8.2 g/dL (6.4-8.2) 12/02/24 14:25 Albumin 3.1 g/dL (3.4-5.0) L 12/02/24 14:25 Globulin 5.1 g/dL (2.5-4.5) H 12/02/24 14:25 Albumin/Globulin Ratio 0.6 Ratio (1.1-2.1) L 12/02/24 14:25 Lipase 51 Units/L (16-77) 12/02/24 14:25 Opioid Opioid Risk Tool Age (Cornel box if 16-45): No History of Preadolescent Sexual Abuse: No Total: 0 Total Score Risk Category: Low Risk Copyright: Waqar MARTINEZ predicting aberrant behaviors Discharge Plan Diagnosis Discharge Problem: Intractable nausea and vomiting, JEFFRY (acute kidney injury), Acute dehydration Discharge Plan Prescriptions: No Action hydrocodone-acetaminophen 5-325 mg Tablet 1 tab PO Q4H MDD 6 PRN (Reason: Pain) Qty: 20 0RF metoprolol succinate 100 mg Tablet Extended Release 24 Hr 100 mg PO DAILY Qty: 30 3RF pioglitazone 45 mg Tablet 45 mg PO DAILY Qty: 30 3RF dapagliflozin propanediol 10 mg tablet 10 mg PO QAM Humulin N NPH Insulin KwikPen 100 unit/mL (3 mL) insulin pen 5 unit SUBCUT TID Health Concerns: Post Hospitalization: new medications and changes needed to prevent readmission or further decline. Pt educated and given instructions on all concerns. Plan of Treatment: Continue with present treatment and follow up plan. Pt is to keep follow up appointment as instructed and take medications as ordered. Orders to Discharge Patient Discharge Orders: Transfer (Routine); Ordered 12/02/24 Ordered By: Nik Hall Follow ups/Referrals Follow ups/Referrals: [facility],None [Primary Care Provider] - 3 days Instructions Stand Alone Forms: Find Help Web Site, Post Hospital Follow Up Care ADDITIONAL NOTES Additional Notes Additional Notes: Pt admitted to Dr Eubanks at 1916 for intractable vomiting, Dehydration & JEFFRY
[2024-12-02 20:45] LABS: BILIRUBIN,URINE NEGATIVE (NEGATIVE); BLOOD/HEMOGLOBIN,URINE 4+ (NEGATIVE); GLUCOSE, URINE 4+ (NEGATIVE); KETONES,URINE 2+ (NEGATIVE); LEUKOCYTE ESTERASE ,URINE NEGATIVE (NEGATIVE); NITRITES,URINE NEGATIVE (NEGATIVE); PROTEIN,URINE 4+ (NEGATIVE); UROBILINOGEN,URINE NORMAL (NORMAL)
[2024-12-02 20:56] LABS: APPEARANCE,URINE CLEAR (CLEAR); COLOR,URINE YELLOW (YELLOW)
[2024-12-02 20:57] LABS: BACTERIA,URINE TRACE /HPF (NEGATIVE); RBC,URINE TNTC /HPF (0-3); SQUAMOUS EPITHELIAL CELL,UR FEW /HPF (NEGATIVE)
[2024-12-02 21:10] VITALS: BMI 29.0
[2024-12-02] MEDS: ZOFRAN INJ 4 MG VIAL IVP PRN (21:31)
[2024-12-02] MEDS: MORPHINE SULFATE INJ 2 MG INJ IVP PRN (21:31)
[2024-12-02] MEDS: NS 1,000 ML IV 1,000 ML IV SCH (21:47)
[2024-12-03] MEDS: NovoLIN R (or HumuLIN R) SUBCUT PRN (05:43)
[2024-12-03 05:53] LABS: BASOPHILS # (AUTO) 0.1 X10^3/uL (0.0-0.1); BASOPHILS % (AUTO) 0.8 % (0.2-1.0); EOSINOPHILS # (AUTO) 0.1 x10^3/uL (0.0-0.2); EOSINOPHILS % (AUTO) 0.7 % (0.9-2.9); HEMATOCRIT 33.9 % (36.0-47.0); HEMOGLOBIN 11.2 g/dL (12.0-16.0); LYMPHOCYTES # (AUTO) 1.3 X10^3/uL (1.3-2.9); MEAN CORPUSCULAR HGB CONC 32.9 g/dL (33.0-35.0); MEAN CORPUSCULAR VOLUME 82.1 fL (80.0-100.0); MEAN PLATELET VOLUME 8.1 fL (7.4-11.0); MONOCYTES # (AUTO) 0.8 x10^3/uL (0.3-0.8); MONOCYTES % (AUTO) 6.7 % (0.0-13.0); NEUTROPHILS # (AUTO) 9.2 x10^3/uL (2.2-4.8); NEUTROPHILS % (AUTO) 80.8 % (42.0-75.0); PLATELET COUNT 365 X10^3/uL (150.0-450.0); RED BLOOD COUNT 4.12 X10^6/uL (3.5-5.4); RED CELL DISTRIBUTION WIDTH 14.7 % (11.6-16.5); WHITE BLOOD COUNT 11.4 X10^3/uL (3.6-10.0)
[2024-12-03 06:04] LABS: ALBUMIN 2.9 g/dL (3.4-5.0); CALCIUM 8.6 mg/dL (8.5-10.1); CARBON DIOXIDE 28.2 mmol/L (21-32); COR CA(FOR HYPOALB) 9.5 mg/dL (8.5-10.1); CREATININE 1.84 mg/dL (0.55-1.02); MAGNESIUM 1.6 mg/dL (2.0-2.9); TOTAL PROTEIN 7.5 g/dL (6.4-8.2)
[2024-12-03] MEDS ORDERED: CONSULT PHARMACY - POTASSIUM & MAGNESIUM XX SCH (07:00)
[2024-12-03] MEDS ORDERED: K-RIDER 10 MEQ/100 ML WATER 10 MEQ/100 ML BAG IV SCH (09:00)
[2024-12-03] MEDS ORDERED: MAGNESIUM SULFATE 1 GRAM/100 mL PREMIX 1 G/100 ML BAG IV ONE (09:00)
[2024-12-03] MEDS: NS + KCL 20 MEQ/L 1,000 ML with MAGNESIUM SULFATE 50% INJ VIAL 1 G IV SCH (09:02)
[2024-12-03] MEDS: BENTYL I.M. INJ 10 MG IM ONE (11:02)
[2024-12-03] MEDS: PROTONIX INJ 40 MG VIAL IVP SCH ×2 (11:04→20:14)
--- NOTE | 2024-12-03 13:16 | DR.H&P ---
H&P History & Physical for Day of: H&P Date: 12/02/24 Chief Complaint Chief Complaint: VOMITING BLOOD/ ABDOMINAL PAIN History of Present Illness History of Present Illness: Pt. c/o onset of mid abdominal pain radiating to her back yesterday. Pt. reports that shortly after the pain started she started having nausea and vomiting. Pt. reports vomiting about 12 times today and she reports that she has been vomiting blood. Pt. was seen in the ER last night for this same complaint and was told to return to the ER if her symptoms did not improve. Pt. had a recent laparoscopic cholecystectomy with Dr. Canada last Thursday. Pt has a PMH of DM, HTN and renal disease. Pt states she had a EGD in [facility] over a year ago with similar symptoms. Pt denies any fever. Past Medical History Past Medical History: Anemia, Asthma, Diabetes and Hypertension Past Surgical History Surgical History: , Cholecystectomy and Hysterectomy Family History Family Medical History: Diabetes Mellitus and Hypertension Social History Does patient currently use any type of tobacco product: No Have you used tobacco products in the last 12 months: No Type of Tobacco Use: None Does any household member use tobacco: No Alcohol Use: None Drug Use: None Medications Home Medications: Home Medications Medication Instructions Recorded Confirmed Type insulin NPH isoph U-100 human 100 5 unit subcut TID 11/17/24 12/02/24 History unit/mL (3 mL) subcutaneous pen (Humulin N NPH U-100 Insulin KwikPen) dapagliflozin propanediol 10 mg 10 mg PO QAM 12/02/24 12/02/24 History tablet Allergies Allergies Allergy/AdvReac Type Severity Reaction Status Date / Time No Known Drug Allergies Allergy Unknown Verified 11/17/24 14:52 Labs 12/03/24 05:08 12/03/24 05:08 Labs: Laboratory WBC 11.4 X10^3/uL (3.6-10.0) H 12/03/24 05:08 RBC 4.12 X10^6/uL (3.5-5.4) 12/03/24 05:08 Hgb 11.2 g/dL (12.0-16.0) L 12/03/24 05:08 Hct 33.9 % (36.0-47.0) L 12/03/24 05:08 MCV 82.1 fL (80.0-100.0) 12/03/24 05:08 MCH 27.0 pg (27.0-34.0) 12/03/24 05:08 MCHC 32.9 g/dL (33.0-35.0) L 12/03/24 05:08 RDW 14.7 % (11.6-16.5) 12/03/24 05:08 Plt Count 365 X10^3/uL (150.0-450.0) 12/03/24 05:08 MPV 8.1 fL (7.4-11.0) 12/03/24 05:08 Neut % (Auto) 80.8 % (42.0-75.0) H 12/03/24 05:08 Lymph % (Auto) 11.0 % (21.0-51.0) L 12/03/24 05:08 [place] % (Auto) 6.7 % (0.0-13.0) 12/03/24 05:08 Eos % (Auto) 0.7 % (0.9-2.9) L 12/03/24 05:08 Baso % (Auto) 0.8 % (0.2-1.0) 12/03/24 05:08 Neut # (Auto) 9.2 x10^3/uL (2.2-4.8) H 12/03/24 05:08 Lymph # (Auto) 1.3 X10^3/uL (1.3-2.9) 12/03/24 05:08 [place] # (Auto) 0.8 x10^3/uL (0.3-0.8) 12/03/24 05:08 Eos # (Auto) 0.1 x10^3/uL (0.0-0.2) 12/03/24 05:08 Baso # (Auto) 0.1 X10^3/uL (0.0-0.1) 12/03/24 05:08 Absolute Nucleated RBC 0.0 /100WBC 12/03/24 05:08 Sodium 140 mmol/L (136-145) 12/03/24 05:08 Corrected Sodium 144 mmol/L (136-145) 12/03/24 05:08 Potassium 3.0 mmol/L (3.5-5.1) L 12/03/24 05:08 Chloride 102 mmol/L (98-107) 12/03/24 05:08 Carbon Dioxide 28.2 mmol/L (21-32) 12/03/24 05:08 BUN 21 mg/dL (7-18) H 12/03/24 05:08 Creatinine 1.84 mg/dL (0.55-1.02) H 12/03/24 05:08 Est GFR (MDRD) Af Amer 39 (>60) L 12/03/24 05:08 Est GFR (MDRD) Non-Af 32 (>60) L 12/03/24 05:08 Glucose 247 mg/dL (65-99) H 12/03/24 05:08 POC Glucose (mg/dL) 150 mg/dL (65-99) H 12/03/24 11:09 Lactic Acid 0.3 mmol/L (0.4-2.0) L 12/03/24 10:50 Calcium 8.6 mg/dL (8.5-10.1) 12/03/24 05:08 Corrected Calcium 9.5 mg/dL (8.5-10.1) 12/03/24 05:08 Magnesium 1.6 mg/dL (2.0-2.9) L 12/03/24 05:08 Total Bilirubin 0.20 mg/dL (0.2-1.0) 12/03/24 05:08 AST 22 Units/L (15-37) 12/03/24 05:08 ALT 18 Units/L (12-78) 12/03/24 05:08 Alkaline Phosphatase 212 Units/L (46-116) H 12/03/24 05:08 Creatine Kinase 282 Units/L (26-192) H 12/03/24 05:08 Total Protein 7.5 g/dL (6.4-8.2) 12/03/24 05:08 Albumin 2.9 g/dL (3.4-5.0) L 12/03/24 05:08 Globulin 4.6 g/dL (2.5-4.5) H 12/03/24 05:08 Albumin/Globulin Ratio 0.6 Ratio (1.1-2.1) L 12/03/24 05:08 Lipase 51 Units/L (16-77) 12/02/24 14:25 Specimen Type Clean catch urine 12/02/24 20: Urine Color Yellow (YELLOW) 12/02/24 20: Urine Appearance Clear (CLEAR) 12/02/24 20: Urine pH 7.0 (5.0 - 8.0) 12/02/24 20: Ur Specific [place] 1.015 (1.000-1.030) 12/02/24 20: Urine Protein 4+ (NEGATIVE) 12/02/24: Urine Glucose (UA) 4+ (NEGATIVE) 12/02/24: Urine Ketones 2+ (NEGATIVE) 12/02/24 20: Urine Blood 4+ (NEGATIVE) 12/02/24 20: Urine Nitrite Negative (NEGATIVE) 12/02/24: Urine Bilirubin Negative (NEGATIVE) 12/02/24 20: Urine Urobilinogen Normal (NORMAL) 12/02/24 20: Ur Leukocyte Esterase Negative (NEGATIVE) 12/02/24 20: Urine RBC Tntc /HPF (0-3) A 12/02/24: Urine WBC None seen /HPF (0-5) 12/02/24 20: Ur Squamous Epith Cells Few /HPF (NEGATIVE) 12/02/24 20: Urine Bacteria Trace /HPF (NEGATIVE) 12/02/24 20: Ur Culture Indicated? No/not indicated 12/02/24 20: Review of Systems Constitutional: No Symptoms Reported Eyes: No Symptoms Reported ENT: No Symptoms Reported Respiratory: Pleuritic Pain (right upper back) Cardiovascular: No Symptoms Reported Gastrointestinal: Nausea, Vomiting and Abdominal Pain Genitourinary: No Symptoms Reported Musculoskeletal: No Symptoms Reported Skin: Wound Neurological: No Symptoms Reported Physical Exam Vital Signs: Vital Signs Temperature 98.3 F Pulse Rate [Radial] 116 Respiratory Rate 20 Respiratory Rate 18 Respiratory Rate 18 Blood Pressure [Right Arm] 174/93 O2 Sat by Pulse Oximetry 96 Oriented: Normal Eyes: Normal Ear: Normal Throat: Dry Respiratory: RLL Diminished and LLL Diminished Cardiovascular: Normal Auscultation: Bowel Sounds: Normal Palpation: Normal Tenderness: Diffuse Skin: Wound (left heel) Musculoskeletal: Normal Psychiatric: Anxiety Mood Description: Anxious Affect: Anxious Speech Pattern: Clear and Appropriate Assessment/Plan (1) Intractable nausea and vomiting: Status: Acute Plan: admit, npo IV hydration, pain and nausea control bs control, verify home medication, ct abdominal pain PPI therapy (2) JEFFRY (acute kidney injury): Status: Acute (3) Abdominal pain: Status: Acute (4) Diabetes mellitus, insulin dependent (IDDM), uncontrolled: Status: Acute (5) Diabetic ulcer of left heel: Status: Acute
[2024-12-03] MEDS: NORCO 5/325 MG TAB PO PRN (14:49)
[2024-12-03] MEDS: SNACK - Diabetic Appropriate PO SCH (20:20)
--- NOTE | 2024-12-04 00:31 | EKG ---
Test Reason : hypertension Blood Pressure : */* mmHG Vent. Rate : 121 BPM Atrial Rate : 121 BPM P-R Int : 140 ms QRS Dur : 72 ms QT Int : 318 ms P-R-T Axes : 60 43 29 degrees QTc Int : 451 ms Sinus tachycardia Otherwise normal ECG When compared with ECG of 21-NOV-2024 07:41, Nonspecific T wave abnormality no longer evident in Anterior leads Confirmed by Gaston Boyd MD ([id number]) on 12/04/2024 8:27:19 AM Referred By: Confirmed By: Gaston Boyd MD
[2024-12-04] MEDS: APRESOLINE INJ 20 MG VIAL IVP ONE ×3 (00:33→09:24)
[2024-12-04 06:09] LABS: BASOPHILS % (AUTO) 0.2 % (0.2-1.0); EOSINOPHILS # (AUTO) 0.1 x10^3/uL (0.0-0.2); EOSINOPHILS % (AUTO) 0.8 % (0.9-2.9); HEMATOCRIT 33.2 % (36.0-47.0); LYMPHOCYTES # (AUTO) 1.3 X10^3/uL (1.3-2.9); LYMPHOCYTES % (AUTO) 12.6 % (21.0-51.0); MEAN CORPUSCULAR HEMOGLOBIN 27.3 pg (27.0-34.0); MEAN CORPUSCULAR HGB CONC 33.2 g/dL (33.0-35.0); MEAN CORPUSCULAR VOLUME 82.2 fL (80.0-100.0); MEAN PLATELET VOLUME 8.3 fL (7.4-11.0); MONOCYTES # (AUTO) 0.7 x10^3/uL (0.3-0.8); MONOCYTES % (AUTO) 6.4 % (0.0-13.0); NEUTROPHILS # (AUTO) 8.3 x10^3/uL (2.2-4.8); PLATELET COUNT 320 X10^3/uL (150.0-450.0); RED BLOOD COUNT 4.04 X10^6/uL (3.5-5.4); RED CELL DISTRIBUTION WIDTH 14.2 % (11.6-16.5); WHITE BLOOD COUNT 10.4 X10^3/uL (3.6-10.0)
[2024-12-04 06:22] LABS: ALBUMIN 2.6 g/dL (3.4-5.0); CALCIUM 8.6 mg/dL (8.5-10.1); CARBON DIOXIDE 18.6 mmol/L (21-32); COR CA(FOR HYPOALB) 9.7 mg/dL (8.5-10.1); CREATININE 1.43 mg/dL (0.55-1.02); POTASSIUM 3.6 mmol/L (3.5-5.1); TOTAL PROTEIN 6.9 g/dL (6.4-8.2)
[2024-12-04] MEDS ORDERED: CONSULT PHARMACY - POTASSIUM & MAGNESIUM XX SCH (07:00)
[2024-12-04] MEDS ORDERED: K-DUR TAB 20 MEQ PO SCH (09:00)
[2024-12-04] MEDS ORDERED: MAG-OX TAB PO SCH (09:00)
--- NOTE | 2024-12-04 09:09 | RAD ---
EXAM: Abdomen series three views HISTORY: Pain vomiting COMPARISON: CT abdomen 12/02/2024 FINDINGS: AP chest: No acute findings. Abdomen: Supine and "semi-erect" views of abdomen. Normal intestinal gas pattern. Surgical clips/ch olecystectomy. There is no definite mass, calcification, ascites or visceral enlargement. IMPRESSION: No acute findings although pneumoperitoneum can not be reliably excluded without full upright or hor izontal-beam decubitus views. THIS IS AN ELECTRONICALLY VERIFIED FINAL REPORT 12/04/2024 9:06 AM - Electronically signed by Lon Mijares MD
[2024-12-04] MEDS ORDERED: TOPROL XL PO ONE (09:12)
[2024-12-04] MEDS: TOPROL XL PO SCH (09:31)
[2024-12-04] MEDS: NORVASC TAB 5 MG PO SCH (09:32)
[2024-12-04] MEDS: PEPCID 20 MG VIAL 20 MG in NS 50 ML IV 50 ML IV SCH (09:34)
[2024-12-04] MEDS: PHENERGAN INJ 25 MG IM ONE (09:37)
[2024-12-04 12:15] LABS: CALCIUM 8.3 mg/dL (8.5-10.1); CARBON DIOXIDE 22.8 mmol/L (21-32); CREATININE 1.57 mg/dL (0.55-1.02); POTASSIUM 3.8 mmol/L (3.5-5.1)
[2024-12-05] MEDS: APRESOLINE INJ 20 MG VIAL IVP ONE ×2 (04:59→13:24)
[2024-12-05 05:42] LABS: BASOPHILS # (AUTO) 0.1 X10^3/uL (0.0-0.1); BASOPHILS % (AUTO) 1.3 % (0.2-1.0); EOSINOPHILS # (AUTO) 0.2 x10^3/uL (0.0-0.2); HEMATOCRIT 32.6 % (36.0-47.0); HEMOGLOBIN 10.9 g/dL (12.0-16.0); LYMPHOCYTES # (AUTO) 1.4 X10^3/uL (1.3-2.9); LYMPHOCYTES % (AUTO) 15.7 % (21.0-51.0); MEAN CORPUSCULAR HEMOGLOBIN 27.4 pg (27.0-34.0); MEAN CORPUSCULAR HGB CONC 33.3 g/dL (33.0-35.0); MEAN CORPUSCULAR VOLUME 82.2 fL (80.0-100.0); MONOCYTES # (AUTO) 0.7 x10^3/uL (0.3-0.8); MONOCYTES % (AUTO) 8.2 % (0.0-13.0); NEUTROPHILS # (AUTO) 6.5 x10^3/uL (2.2-4.8); NEUTROPHILS % (AUTO) 72.8 % (42.0-75.0); PLATELET COUNT 306 X10^3/uL (150.0-450.0); RED BLOOD COUNT 3.97 X10^6/uL (3.5-5.4); RED CELL DISTRIBUTION WIDTH 14.6 % (11.6-16.5); WHITE BLOOD COUNT 8.9 X10^3/uL (3.6-10.0)
[2024-12-05 05:44] LABS: CALCIUM 8.1 mg/dL (8.5-10.1); CARBON DIOXIDE 21.7 mmol/L (21-32); CREATININE 1.5 mg/dL (0.55-1.02); POTASSIUM 4.1 mmol/L (3.5-5.1)
[2024-12-05 06:58] LABS: ALBUMIN 2.6 g/dL (3.4-5.0); COR CA(FOR HYPOALB) 9.2 mg/dL (8.5-10.1); TOTAL PROTEIN 6.9 g/dL (6.4-8.2)
[2024-12-05] MEDS ORDERED: TOPROL XL PO ONE (08:20)
[2024-12-05] MEDS ORDERED: PHENERGAN TAB 25 MG PO PRN (09:04)
[2024-12-05] MEDS: BENTYL CAP 10 MG PO SCH (09:39)
[2024-12-05] MEDS: FARXIGA PO SCH (09:39)
[2024-12-05] MEDS: NS 1,000 ML IV 1,000 ML IV SCH (10:15)
[2024-12-05] MEDS ORDERED: MILK OF MAGNESIA PO PRN (10:41)
[2024-12-05] MEDS: REGLAN TAB 5 MG PO SCH (11:58)
[2024-12-05] MEDS: COLACE CAP 100 MG PO SCH (11:58)
[2024-12-05] MEDS: ULTRAM PO PRN (12:19)
[2024-12-05] MEDS: MIRALAX POWDER (1 DOSE 17 G) PO SCH (20:29)
[2024-12-06 00:11] VITALS: O2SAT 97
[2024-12-06] MEDS ORDERED: XYLOCAINE 2 % (PLAIN) ONE (07:41)
[2024-12-06] MEDS ORDERED: DIPRIVAN VIAL 20 ML ONE (07:41)
[2024-12-06] MEDS ORDERED: NS 1,000 ML IV 1,000 ML ONE (07:58)
[2024-12-06] MEDS: NS IV PRN (07:58)
[2024-12-06] MEDS: XYLOCAINE 2 % (PLAIN) INJ PRN (08:02)
[2024-12-06] MEDS: DIPRIVAN VIAL 140 ML IVP PRN (08:05)
[2024-12-06] MEDS ORDERED: TOPROL XL PO ONE (08:08)
--- NOTE | 2024-12-06 08:23 | RAD ---
EXAM:KUBHISTORY:Abdominal pain;COMPARISON:NoneFINDINGS:Evaluation of the abdomen demonstrates a nonobstructive bowel gas pattern. No evidence of pneumoperitoneum. No pathologic soft tissue calcification. No acute osseous abnormality.IMPRESSION:No acute abdominal process.THIS IS AN ELECTRONICALLY VERIFIED FINAL REPORT12/06/2024 8:20 AM - Electronically signed by Patrice Aj MD
[2024-12-06] MEDS ORDERED: PROTONIX INJ 40 MG VIAL IVP SCH (09:00)
[2024-12-06 09:14] LABS: BASOPHILS # (AUTO) 0.1 X10^3/uL (0.0-0.1); BASOPHILS % (AUTO) 1.1 % (0.2-1.0); EOSINOPHILS # (AUTO) 0.3 x10^3/uL (0.0-0.2); EOSINOPHILS % (AUTO) 3.5 % (0.9-2.9); HEMATOCRIT 32.1 % (36.0-47.0); HEMOGLOBIN 10.8 g/dL (12.0-16.0); LYMPHOCYTES # (AUTO) 1.8 X10^3/uL (1.3-2.9); LYMPHOCYTES % (AUTO) 24.1 % (21.0-51.0); MEAN CORPUSCULAR HEMOGLOBIN 27.3 pg (27.0-34.0); MEAN CORPUSCULAR HGB CONC 33.7 g/dL (33.0-35.0); MEAN PLATELET VOLUME 7.6 fL (7.4-11.0); MONOCYTES # (AUTO) 0.8 x10^3/uL (0.3-0.8); MONOCYTES % (AUTO) 10.1 % (0.0-13.0); NEUTROPHILS # (AUTO) 4.6 x10^3/uL (2.2-4.8); NEUTROPHILS % (AUTO) 61.2 % (42.0-75.0); PLATELET COUNT 254 X10^3/uL (150.0-450.0); RED BLOOD COUNT 3.96 X10^6/uL (3.5-5.4); RED CELL DISTRIBUTION WIDTH 14.1 % (11.6-16.5); WHITE BLOOD COUNT 7.4 X10^3/uL (3.6-10.0)
[2024-12-06 09:37] LABS: ALBUMIN 2.6 g/dL (3.4-5.0); CALCIUM 8.4 mg/dL (8.5-10.1); CARBON DIOXIDE 21.9 mmol/L (21-32); COR CA(FOR HYPOALB) 9.5 mg/dL (8.5-10.1); CREATININE 1.35 mg/dL (0.55-1.02); MAGNESIUM 1.9 mg/dL (2.0-2.9); POTASSIUM 3.4 mmol/L (3.5-5.1); TOTAL PROTEIN 6.7 g/dL (6.4-8.2)
[2024-12-06] MEDS: APRESOLINE INJ 20 MG VIAL IVP ONE (09:45)
[2024-12-06] MEDS: ZANAFLEX PO SCH (13:25)
[2024-12-06] MEDS: NORCO 7.5/325 MG TAB PO ONE (13:26)
[2024-12-06 16:54] VITALS: BP 175/80; PULSE 91; RESP 17; TEMP 98.3
== END 2024-12-06 16:35 | disposition home or self-care (01) ==
LOC: ER 13:10 → MED/SURG 13:10
PROVIDERS: ADMIT Internal Medicine; ATTEND Internal Medicine
DX: K21.00 Gastro-esophageal reflux disease with esophagitis, without bleeding; Z98.890 Other specified postprocedural states; K22.10 Ulcer of esophagus without bleeding; I12.9 Hypertensive chronic kidney disease with stage 1 through stage 4 chronic kidney disease, or unspecified chronic kidney disease; Z79.4 Long term (current) use of insulin; D64.9 Anemia, unspecified; R00.0 Tachycardia, unspecified; R10.13 Epigastric pain; E86.0 Dehydration; E83.42 Hypomagnesemia; N18.9 Chronic kidney disease, unspecified; R11.2 Nausea with vomiting, unspecified; E11.65 Type 2 diabetes mellitus with hyperglycemia; N17.9 Acute kidney failure, unspecified; L97.429 Non-pressure chronic ulcer of left heel and midfoot with unspecified severity; K29.00 Acute gastritis without bleeding; R26.89 Other abnormalities of gait and mobility; E11.621 Type 2 diabetes mellitus with foot ulcer; Z90.49 Acquired absence of other specified parts of digestive tract; E87.6 Hypokalemia